=== PATIENT | female | born 1995 | race Caucasian/White ===

== ENCOUNTER 2018-11-13 06:09 | Inpatient (IN) | payer BC | END 2018-11-16 15:15 | disposition home or self-care (01) | LOC: LDH 06:09 → WSH 11-14 03:31 | PROC: 10D00Z1 Extraction of Products of Conception, Low, Open Approach (ICD-10-PCS; principal; 2018-11-14) | DX: O76 Abnormality in fetal heart rate and rhythm complicating labor and delivery (principal); O75.0 Maternal distress during labor and delivery; Z37.0 Single live birth ==

== ENCOUNTER 2022-08-03 14:30 | Emergency (ER) | payer BC, MEDICAID ==
[~2022-08-03] VITALS: Ht 170.2 cm; Wt 63.5 kg
[~2022-08-03 14:30] MED LIST: PREN-154 PO
[2022-08-03] MEDS ORDERED: TETANUS/DIPHTHERIA TOXOID [ADULT] 0.5 ML VIAL IM ONE (16:30)
[2022-08-03] MEDS ORDERED: BACITRACIN 1 EACH PACKET TP ONE (17:01)
[2022-08-03] MEDS ORDERED: AMOX1TAB16 PO (17:58)
[2022-08-03 18:28] VITALS: BP 130/79
== END 2022-08-03 18:31 | disposition home or self-care (01) ==
LOC: EDH 14:30
DX: S81.811A Laceration without foreign body, right lower leg, initial encounter (principal); E03.9 Hypothyroidism, unspecified; W54.0XXA Bitten by dog, initial encounter; Y93.89 Activity, other specified; Y92.89 Other specified places as the place of occurrence of the external cause; Y99.8 Other external cause status
CPT/HCPCS: 12001; 12002; 73590; 90471; 90714